=== PATIENT | male | born 1945 | race Caucasian/White ===

== ENCOUNTER 2024-08-15 08:06 | Emergency (ER) | payer OTHER, MEDICAID ==
[~2024-08-15] VITALS: Ht 165.1 cm; Wt 80.0 kg
[2024-08-15 08:06] VITALS: O2SAT 99
[2024-08-15 08:39] LABS: BASOPHILS % 0.4 % (0.0-2.0); EOSINOPHILS % 3.6 % (0.0-5.0); HEMATOCRIT. 37.8 % (42.0-52.0); HEMOGLOBIN. 12.4 g/dL (14.0-18.0); LYMPHOCYTES % 16.6 % (20.0-50.0); MEAN CORPUSCULAR HEMOGLOBIN 30.3 pg (28.0-32.0); MEAN CORPUSCULAR HGB CONC 32.7 g/dL (31.0-37.0); MEAN CORPUSCULAR VOLUME 92.6 fL (80.0-94.0); MEAN PLATELET VOLUME 7.7 fl (7.4-10.4); MONOCYTES % 11.1 % (2.0-8.0); NEUTROPHILS % 68.3 % (40.0-76.0); PLATELET 246 x1000/uL (130-400); RED BLOOD CELL COUNT 4.08 mill/uL (4.7-6.1); RED CELL DISTRIBUTION WIDTH 17.5 % (11.6-14.6); WHITE BLOOD COUNT 7.3 x1000/uL (4.5-11.0)
[2024-08-15 08:50] LABS: CHLORIDE 95 mEq/L (98-107); POTASSIUM 4.1 mEq/L (3.5-5.1); SODIUM 137 mEq/L (136-145)
[2024-08-15 08:51] LABS: CALCIUM 8.6 mg/dL (8.7-10.4); CARBON DIOXIDE 32 mEq/L (21-32)
[2024-08-15 08:56] LABS: CREATININE 3.3 mg/dL (0.6-1.3); GLUCOSE 143 mg/dL (70-105); UREA NITROGEN BLOOD 24 mg/dL (9-23)
[2024-08-15 08:57] LABS: TROPONIN I HIGH SENSITIVITY 20 ng/L (3.0-53)
[2024-08-15 09:17] LABS: INR 0.9; PARTIAL THROMBOPLASTIN TIME 27.6 sec (23.4-31.0); PROTHROMBIN TIME 9.9 sec (9.6-11.0)
[2024-08-15] MEDS: LABETALOL 5MG/ML 4ML INJ IV ONE (09:46)
[2024-08-15] MEDS: AMLODIPINE 5MG TABLET PO ONE (09:46)
[2024-08-15] MEDS: NITROGLYCERIN 0.4MG TABLET SL SL ONE (11:40)
[2024-08-15] MEDS: HYDRALAZINE 20MG/ML VIAL IV ONE (12:22)
[2024-08-15 12:26] VITALS: BP 147/78; PULSE 88; RESP 15; TEMP 36.7; O2SAT 100
== END 2024-08-15 12:38 | disposition short-term general hospital (02) ==
LOC: ER 08:06 → EDBEDREQ 08:19 → CANBEDREQ 09:27 → ER 12:38
DX: I12.0 Hypertensive chronic kidney disease with stage 5 chronic kidney disease or end stage renal disease (principal); E11.22 Type 2 diabetes mellitus with diabetic chronic kidney disease; N18.6 End stage renal disease; R55 Syncope and collapse; Z88.6 Allergy status to analgesic agent
CPT/HCPCS: 99291; 96374; 96375; 80048; 83880; 83735; 85025; 85610; 85730; 86850; 86900; 86901; 84484; 36415; 71045; 93005; J0360; J3490